=== PATIENT | male | born 1940 ===

== ENCOUNTER 2024-09-29 01:30 | Emergency (ER) | payer MEDICARE, OTHER ==
[2024-09-29 02:14] LABS: HEMATOCRIT 44.2 % (40.0-54.0); HEMOGLOBIN 12.7 g/dL (14.0-18.0); MEAN CORPUSCULAR HEMOGLOBIN 30.2 pg (27.0-34.0); MEAN CORPUSCULAR HGB CONC 28.7 g/dL (33.0-35.0); MEAN CORPUSCULAR VOLUME 105.2 fL (80-100); PLATELET COUNT,PLT 240 10^3/uL (150-450); WHITE BLOOD CELL COUNT,WBC 11.8 10^3/uL (5.0-10.0)
[2024-09-29 02:16] LABS: APPEARANCE,URINE CLOUDY (CLEAR); BILIRUBIN,URINE SMALL (NEGATIVE); COLOR,URINE YELLOW (YELLOW); GLUCOSE,URINE NEGATIVE (NEGATIVE); KETONES,URINE NEGATIVE (NEGATIVE); LEUKOCYTE ESTERASE,URINE LARGE (NEGATIVE); NITRITE,URINE NEGATIVE (NEGATIVE); OCCULT BLOOD,URINE MODERATE (NEGATIVE); PH,URINE 5.5 (5.0-9.0); PROTEIN,URINE 100 (NEGATIVE)
[2024-09-29 02:28] LABS: BACTERIA,URINE MANY /HPF (0-FEW/HPF); EPITHELIAL CELLS,URINE RARE /HPF (NOT SEEN); WBC,URINE PACKED /HPF (0-5/HPF)
[2024-09-29 02:36] LABS: ALANINE AMINOTRANSFERASE,ALT 30 U/L (16-63); ALBUMIN 2.3 g/dL (3.4-5.0); ALKALINE PHOSPHATASE 109 U/L (46-116); ASPARTATE AMNIOTRANSFERASE,AST 39 U/L (15-37); BILIRUBIN TOTAL 0.5 mg/dL (0.2-1.0); BLOOD UREA NITROGEN,BUN 92 mg/dL (7-18); BUN/CREATININE RATIO 38.8 (No establ ref range); CALCIUM 9.9 mg/dL (8.5-10.1); CREATININE 2.37 mg/dL (0.70-1.30); GLUCOSE RANDOM 108 mg/dL (70-99); MAGNESIUM 2.6 mg/dL (1.8-2.4); PROTEIN TOTAL,TP 8.2 g/dL (6.4-8.2)
[2024-09-29 02:37] LABS: B-TYPE NATRIURETIC PEPTIDE,BNP 91 pg/ml (0-100)
[2024-09-29 02:38] LABS: A/G RATIO 0.39; ESTIMATED GFR 26 mL/min (>=60)
[2024-09-29] MEDS: Sodium Chloride 0.9% 10 ML Syringe FLUSH PRN (02:58)
[2024-09-29] MEDS: cefTRIAXone 2 GM Vial IVPUSH ONE (02:58)
[2024-09-29] MEDS: metroNIDAZOLE/Normal Saline 500 MG in Premix Bag 1 BAG IV ONE (03:03)
[2024-09-29 03:04] LABS: BAND PERCENT MAN 3 %; EOSINOPHILS PERCENT MAN 1 % (1-3); LYMPHOCYTES PERCENT MAN 16 % (20-50); MONOCYTES PERCENT MAN 5 % (2-8); SEG NEUTROPHILS PERCENT MAN 75 % (42-75)
[2024-09-29 03:23] LABS: ANION GAP 12.7 mEq/L (7-13); CARBON DIOXIDE,CO2 30 mmol/L (21-32); CHLORIDE,CL 134 mmol/L (98-107); POTASSIUM,K 3.7 mmol/L (3.5-5.1)
[2024-09-29 03:25] LABS: SODIUM,NA 173 mmol/L (136-145)
[2024-09-29] MEDS: Amoxicillin/Clavulanate K 875-125 MG Tab PO ONE (03:35)
[2024-09-29] MEDS: Morphine 4 MG/ML Syringe SUBCUT ONE (03:55)
== END 2024-09-29 04:07 ==
LOC: DL.ED 01:30
DX: J96.01 Acute respiratory failure with hypoxia (principal); J69.0 Pneumonitis due to inhalation of food and vomit; E87.5 Hyperkalemia; G30.9 Alzheimer's disease, unspecified; F02.818 Dementia in other diseases classified elsewhere, unspecified severity, with other behavioral disturbance; D15.2 Benign neoplasm of mediastinum; R82.90 Unspecified abnormal findings in urine; Z88.2 Allergy status to sulfonamides
CPT/HCPCS: 36415; 71045; 80053; 81001; 83735; 83880; 84484; 85025; 87040; 87086; 87428; 93005; 93010; 96365; 96372; 96375; 99285; C1758; J0696; J1836; J2270